=== PATIENT | female | born 1990 | race Hispanic/Latino ===

== ENCOUNTER 2019-06-14 16:28 | Observation (INO) | payer BC ==
[2019-06-14 17:16] LABS: APPEARANCE,URINE Clear (CLEAR); BILIRUBIN,URINE Negative (NEGATIVE); COLOR,URINE Yellow (YELLOW); GLUCOSE, URINE (UA) Negative (NEGATIVE); KETONES,URINE Trace mg/dL (NEGATIVE); LEUKOCYTE ESTERASE ,URINE Moderate (NEGATIVE); NITRATE,URINE Negative (NEGATIVE); OCCULT BLOOD,URINE Nonhemolyzed Trace (NEGATIVE); PROTEIN,URINE POS 1+ mg/dL (NEGATIVE)
[2019-06-14 17:30] LABS: BACTERIA,URINE Few /HPF (None Seen)
[2019-06-14 17:31] LABS: MUCUS,URINE Moderate LPF (None Seen)
== END 2019-06-14 18:05 | disposition home or self-care (01) ==
LOC: LDH 16:28
PROVIDERS: ADMIT Specialist; ATTEND Specialist
DX: O26.853 Spotting complicating pregnancy, third trimester (principal); Z3A.36 36 weeks gestation of pregnancy
CPT/HCPCS: 81001; G0378

== ENCOUNTER 2019-07-03 05:53 | Inpatient (IN) | payer BC ==
[~2019-07-03] VITALS: Ht 162.6 cm; Wt 86.2 kg
[2019-07-03] MEDS ORDERED: LACTATED RINGERS 1000ML 1,000 ML IV PRN (06:16)
[2019-07-03 06:19] VITALS: BP 120/78
[2019-07-03] MEDS ORDERED: OXYTOCIN 10 USP UNITS/ML 20 UNIT in LACTATED RINGERS 1000ML 1,000 ML IV SCH (06:30)
[2019-07-03] MEDS ORDERED: PROMETHAZINE HCL 25 MG/ML 1ML AMPULE IM PRN (06:30)
[2019-07-03] MEDS ORDERED: MEPERIDINE-PF 50 MG/ML SYG IVP PRN (06:30)
[2019-07-03] MEDS ORDERED: LACTATED RINGERS 1000ML 1,000 ML IV ONE (06:44)
[2019-07-03] MEDS ORDERED: OXYTOCIN-LR 20 UNITS/1000 ML 1,000 ML IV ONE (06:45)
[2019-07-03 07:00] LABS: APPEARANCE,URINE Clear (CLEAR); BILIRUBIN,URINE Negative (NEGATIVE); COLOR,URINE Yellow (YELLOW); GLUCOSE, URINE (UA) Negative (NEGATIVE); KETONES,URINE Negative (NEGATIVE); LEUKOCYTE ESTERASE ,URINE Large (NEGATIVE); NITRATE,URINE Negative (NEGATIVE); OCCULT BLOOD,URINE Trace (NEGATIVE); PROTEIN,URINE Trace mg/dL (NEGATIVE)
[2019-07-03 07:05] LABS: BACTERIA,URINE Few /HPF (None Seen); RBC,URINE 0-1 /HPF (0-1); SQUAMOUS EPITHELIAL CELL,UR Moderate /HPF (0-2)
[2019-07-03 07:13] LABS: HEMATOCRIT 30.7 % (36-48); MEAN CORPUSCULAR HEMOGLOBIN 30.1 pg (27.0-33.0); MEAN CORPUSCULAR HGB CONC 34.4 g/dL (32.0-36.0); MEAN CORPUSCULAR VOLUME 87.5 fL (79-99); PLATELET COUNT (AUTO) 220 K/uL (130-400); RED BLOOD CELL COUNT(AUTO) 3.51 MIL/uL (4.00-5.50); RED CELL DISTRIBUTION WIDTH 13.8 % (11.0-15.5); WHITE BLOOD COUNT (AUTO) 9.2 K/uL (4.8-10.8)
[2019-07-03] MEDS ORDERED: FLU VACC QS2019-20 36MOS UP/PF 60 MCG/0.5 ML ML IM SCH ×2 (09:00→16:45)
[2019-07-03] MEDS: OXYTOCIN-LR 20 UNITS/1000 ML 1,000 ML IV SCH (13:56)
[2019-07-03] MEDS ORDERED: WITCH HAZEL 1 PAD TP PRN (14:00)
[2019-07-03] MEDS ORDERED: ACETAMINOPHEN-CODEINE 300/30MG TAB PO PRN (14:00)
[2019-07-03] MEDS ORDERED: ACETAMINOPHEN 325 MG TAB PO PRN (14:00)
[2019-07-03] MEDS ORDERED: LANOLIN 30GM OINTMENT TP PRN (14:00)
[2019-07-03] MEDS ORDERED: BENZOCAINE/LANOLIN/ALOE VERA 60 ML AEROSOL TP PRN (14:00)
[2019-07-03] MEDS ORDERED: OXYTOCIN-LR 20 UNITS/1000 ML 1,000 ML IV SCH (14:15)
[2019-07-03 16:24] VITALS: BP 113/66
[2019-07-03] MEDS ORDERED: PREN-154 PO (16:36)
[2019-07-03] MEDS ORDERED: DIPH,PERTUSS(ACELL),TET VAC/PF 0.5 ML VIAL IM SCH (16:45)
[2019-07-03] MEDS: IBUPROFEN 600 MG TABLET PO PRN (17:24)
[2019-07-03 19:33] VITALS: BP 125/55
[2019-07-03] MEDS: DOCUSATE SODIUM 100 MG CAP PO SCH (20:37)
[2019-07-03 23:05] VITALS: BP 104/55
[2019-07-04 03:25] VITALS: BP 107/53
[2019-07-04] MEDS: IBUPROFEN 600 MG TABLET PO PRN ×3 (04:20→17:55)
[2019-07-04] MEDS: OXYTOCIN-LR 20 UNITS/1000 ML 1,000 ML IV SCH (05:22)
[2019-07-04 07:14] LABS: HEPATITIS Bs ANTIGEN SCREEN P Negative (Negative)
[2019-07-04 07:53] VITALS: BP 105/61
[2019-07-04] MEDS: DOCUSATE SODIUM 100 MG CAP PO SCH ×2 (08:40→20:32)
[2019-07-04 11:45] VITALS: BP 109/69
[2019-07-04 16:46] VITALS: BP 112/67
[2019-07-04 19:32] VITALS: BP 124/77
[2019-07-04 23:19] VITALS: BP 112/71
[2019-07-05 03:40] VITALS: BP 117/80
[2019-07-05 07:41] VITALS: BP 129/73
[2019-07-05] MEDS: DOCUSATE SODIUM 100 MG CAP PO SCH (07:49)
[2019-07-05] MEDS: IBUPROFEN 600 MG TABLET PO PRN (07:49)
--- NOTE | 2019-07-05 08:45 | NUR ---
DR. LAGUNA ROUNDED AND DISCHARGED PATIENT TO HOME. PATIENT STABLE.
--- NOTE | 2019-07-05 10:40 | NUR ---
DISCHARGE INSTRUCTIONS GIVEN AND PATIENT DENIES PAIN AT THIS TIME.
[2019-07-05 11:41] VITALS: BP 105/65
--- NOTE | 2019-07-05 12:30 | NUR ---
PATIENT WAS TAKEN VIA W/C TO [facility]ILY [facility] CARRYING HER BABY IN HER ARMS. PATIENT DISCHARGED TO HER AND PATIENT STABLE AND DENIES PAIN. DISCHARGED TO PATIENT.
== END 2019-07-05 12:30 | disposition home or self-care (01) | DRG 807 ==
LOC: LDH 05:53 → WSH 16:20 → PREOBSVTOIN 07-09 05:51
PROVIDERS: ADMIT Specialist; ATTEND Specialist
PROC: 10E0XZZ Delivery of Products of Conception, External Approach (ICD-10-PCS; principal; 2019-07-03)
PROC: 3E033VJ Introduction of Other Hormone into Peripheral Vein, Percutaneous Approach (ICD-10-PCS; 2019-07-03)
PROC: 10907ZC Drainage of Amniotic Fluid, Therapeutic from Products of Conception, Via Natural or Artificial Opening (ICD-10-PCS; 2019-07-03)
PROC: 0HQ9XZZ Repair Perineum Skin, External Approach (ICD-10-PCS; 2019-07-03)
PROC: 3E02340 Introduction of Influenza Vaccine into Muscle, Percutaneous Approach (ICD-10-PCS; 2019-07-03)
PROC: 3E0234Z Introduction of Serum, Toxoid and Vaccine into Muscle, Percutaneous Approach (ICD-10-PCS; 2019-07-03)
DX: O69.81X0 Labor and delivery complicated by cord around neck, without compression, not applicable or unspecified (principal); Z37.0 Single live birth; O70.0 First degree perineal laceration during delivery; Z3A.39 39 weeks gestation of pregnancy; Z23 Encounter for immunization
CPT/HCPCS: 36415; 81001; 85027; 86592; 86850; 86900; 86901; 87340; 90715; A4351; G0008; G0378; J2175; J2550; J2590; J7120; Q2035

== ENCOUNTER → 2023-12-06 | Outpatient (CLI) | payer BC ==
[~2023-12-06] MED LIST: PREN-154 PO
== END | disposition home or self-care (01) ==
LOC: RAH 12:45
PROVIDERS: ATTEND Nurse Practitioner Family
DX: N63.14 Unspecified lump in the right breast, lower inner quadrant (principal); N64.4 Mastodynia; N61.0 Mastitis without abscess
CPT/HCPCS: 76641